=== PATIENT | male | born 1995 | race Caucasian/White ===

== ENCOUNTER 2020-08-16 14:04 | Emergency (ER) | payer OTHER, SELFPAY ==
[2020-08-16 14:09] VITALS: BP 140/85; PULSE 101; RESP 16; TEMP 37.2; O2SAT 100; BMI 17.7
--- NOTE | 2020-08-16 15:17 | ED.DENTAL ---
HPI - Dental/Oral General Chief complaint: Dental/Oral Stated complaint: gums swollen Time Seen by Provider: 08/16/20 15:10 Source: patient Mode of arrival: ambulatory Limitations: no limitations History of Present Illness HPI Narrative: 25 y/o male presenting with reddened gums below his front bottom teeth as well as mild whitish discoloration of gums above left upper incisor. He has no gum or dental pain. No facial pain or swelling. No sensitivity to hot or cold food. Onset (ago): day(s) Duration: constant Severity: mild Associated symptoms: gum swelling Treatment prior to arrival: none Related Data Previous Rx's Medication Instructions Recorded chlorhexidine gluconate [Paroex 15 ml BUCCAL DAILY #118 ml 08/16/20 Oral Rinse] Allergies Allergy/AdvReac Type Severity Reaction Status Date / Time No Known Allergies Allergy Unverified 04/05/20 18:04 [No Known Allergies*] Review of Systems Review of Systems: Constitutional: No Fever, No Chills ENT/Mouth: No sore throat, No Rhinorrhea, No Swallowing Difficulty, No dental pain, +reddened gums Eyes: No Eye Pain, No Swelling, No Redness Cardiovascular: No Chest Pain, No SOB Respiratory: No Cough, No Sputum Gastrointestinal: No Nausea, No Vomiting Neuro: No Headache Heme/Lymph: No Bruising, + Lymphadenopathy PMFSH Past Medical History Attestation statement: The following information was validated with the patient. Medical History Anxiety Herniated disc Social History Social History Advance Directives: No Advance Directives Information Provided: No Physical Exam Vital Signs: Vital Signs: Last Vital Signs Temp 99.0 F 08/16/20 14:09 Pulse 101 H 08/16/20 14:09 Resp 16 08/16/20 14:09 BP 140/85 H 08/16/20 14:09 Pulse Ox 100 08/16/20 14:09 Body Mass Index 17.7 Appearance: Alert. Oriented X3. No acute distress. HEENT: mild gingival erythema and receding of central lower gums and small area of white punctuate discoloration above upper left incisor, non-tender CVS: Normal heart rate and rhythm. Pulses normal. Respiratory: No respiratory distress. Skin: Skin warm and dry. Normal skin color. Normal skin turgor. No rashes. Extremities: atraumatic, no edeam Neuro: Oriented X 3. No motor deficit. No sensory deficit. Course Course Course Narrative: 25 y/o male presenting with painless reddened and whitish patch on his gums. Possible gingivitis. Will treat with peridex oral rinse and have him follow up with his denist. No abscess, candidiasis, ulcerations. Stable for discharge. Discharge Plan Discharge Clinical Impression: Acute gingivitis Patient Disposition: Home, Self-Care Instructions: Gingivitis (ED) Additional Instructions: Follow up with your dentist. Use a soft bristle toothbrush. Use the prescribed oral rinse two times per day. Prescriptions: New chlorhexidine gluconate [Paroex Oral Rinse] 0.12 % mouthwash 15 ml buccal DAILY Qty: 118 RF: 0
== END 2020-08-16 15:36 | disposition home or self-care (01) ==
PROVIDERS: Emergency Provider Emergency Medicine; PCP Internal Medicine
DX: K05.00 Acute gingivitis, plaque induced (principal)
CPT/HCPCS: 99283

== ENCOUNTER 2020-11-09 14:51 | Outpatient (REF) | payer OTHER, SELFPAY | END 2020-11-09 14:52 | disposition home or self-care (01) | LOC: HO.LAB 14:51 | PROVIDERS: Visit Provider Internal Medicine | DX: Z20.822 Contact with and (suspected) exposure to COVID-19 (principal) | CPT/HCPCS: C9803; U0003; U0005 ==

== ENCOUNTER 2021-05-28 12:31 | Outpatient (REF) | payer OTHER, MEDICAID, SELFPAY ==
--- NOTE | ~2021-05-28 | XR_ITS ---
EXAMINATION: XR CHEST CLINICAL INFORMATION: Bronchitis. COMPARISON: Chest done on 06/16/2012. TECHNIQUE: 2 views of the chest were obtained. FINDINGS: No significant abnormality is noted involving the heart, lungs, mediastinum, bony thorax or soft tissues. No significant change. XR/XR chest 2V IMPRESSION: Unremarkable examination.
== END 2021-05-28 12:32 | disposition home or self-care (01) ==
LOC: HO.HMGCX 12:31
PROVIDERS: PCP Internal Medicine; Visit Provider Internal Medicine
DX: J40 Bronchitis, not specified as acute or chronic (principal)
CPT/HCPCS: 71046

== ENCOUNTER 2021-12-07 09:15 | Emergency (ER) | payer OTHER, SELFPAY ==
--- NOTE | ~2021-12-07 | XR_ITS ---
EXAMINATION: XR LUMBOSACRAL SPINE CLINICAL INFORMATION: Low back pain radiating to buttocks. COMPARISON: Lumbosacral spine done on 10/04/2017. TECHNIQUE: Three views of the lumbosacral spine. FINDINGS: The vertebral bodies and posterior elements are normal. The disc spaces are preserved and the vertebral alignment is normal. The paraspinal soft tissues are normal. XR/XR lumbar spine 2-3V IMPRESSION: Unremarkable examination. No significant change since 10/04/2017.
[2021-12-07 09:50] VITALS: BP 146/68; PULSE 102; RESP 18; TEMP 36.9; O2SAT 97; BMI 19.2
--- NOTE | 2021-12-07 09:56 | ED_ITS ---
HPI - General Adult General Chief complaint: General Medical Stated complaint: lower back pain Time Seen by Provider: 12/07/21 09:43 Source: patient Mode of arrival: ambulatory Limitations: no limitations History of Present Illness HPI narrative: 18-year-old male presents to the ER with lower back pain that radiates into both of his legs this started last night. He reports he was unable to sleep last night due to the pain. He reports the pain is in his lower back, his buttocks, and radiates to the upper portion of the back of his legs. It is worse with sitting, his most comfortable position is standing. He has not taken any medications for the pain. He also reports the pain radiates from the buttock area around to the bilateral inguinal area. Worse with movement. No testicular pain or urinary symptoms. No nausea vomiting or diarrhea. No fevers. No history of IVDA. No urinary or bowel incontinence. 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 MD complaint: Low back pain Onset (ago): day(s) (1) Location: back Radiation: extremity Severity: severe Severity scale (1-10): 10 Quality: stabbing and sharp Pain Consistency: constant Relieving factors: other (Standing and walking) Exacerbating factors: movement and other (Laying down) Associated symptoms: denies other symptoms Treatments prior to arrival: none Related Data Previous Rx's Medication Instructions Recorded cyclobenzaprine 10 mg tablet 10 mg PO TID PRN #14 tab 12/07/21 ibuprofen 600 mg tablet 600 mg PO Q8H PRN #14 tab 12/07/21 lidocaine 5 % topical patch 1 patch TOPICAL DAILY #15 ea 12/07/21 oxycodone 5 mg tablet 5 mg PO TID PRN #8 tab 12/07/21 Allergies Allergy/AdvReac Type Severity Reaction Status Date / Time No Known Allergies Allergy Unverified 05/28/21 11:53 [No Known Allergies*] Review of Systems Review of Systems: Constitutional: No Fever, No Chills Cardiovascular: No Chest Pain, No SOB Gastrointestinal: No Nausea, No Vomiting, No abdominal Pain Genitourinary: No Dysuria, No Urinary Frequency, No Hematuria Musculoskeletal: No joint pain, No Myalgias, +Back pain Skin: No Skin Lesions, No rash Neuro: No Weakness, No Numbness, No Dizziness, No Headache Psych: No Anxiety/Panic, No Depression Heme/Lymph: No Bruising, No Lymphadenopathy PMFSH Past Medical History Medical History Anxiety Herniated disc Social History Social History Patient Tobacco Use Status: Never used Tobacco Advance Directives: No Physical Exam ED Vital Signs: Vital Signs - 24 hr 12/07/21 09:50 Temperature 98.4 F Pulse Rate 102 H Respiratory Rate 18 Blood Pressure 146/68 H Pulse Oximetry 97 BMI result Body Mass Index 19.2 Appearance: Alert. Oriented X3. No acute distress. Pacing in the room HEENT: normal inspection CVS: Normal heart rate and rhythm. Pulses normal. Respiratory: No respiratory distress. Skin: Skin warm and dry. Normal skin color. Normal skin turgor. No rashes. Back: soft tissue tenderness of the bilateral lower lumbar area, +SI joint tend erness bilaterally. no midline tenderness. limited flexion of the spine due to pain Extremities: Normal inspection x4 Neuro: Oriented X 3. No motor deficit. No sensory deficit. Normal DTRs Course Course Course Narrative: 18-year-old male presents to the ER with nontraumatic lower back pain that ra diates to his bilateral buttock and lower extremities. Pain with sitting and lying flat. He has pain shooting down the back of both of his legs, consistent with sciatica. He has no red flag symptoms of low back pain. He is not taking any medications for pain as of yet. Will give him a dose of oxycodone, Toradol, Lidoderm patch and reassess. X-ray ordered per request. Reevaluation(s) Reevaluation #1: X-ray is normal. Patient reports his pain is much more tolerable at this time. Will give a short course of oxycodone for pain control, NSAID, Lidoderm. He is stable for discharge home with supportive care and outpatient follow-up. Encourage follow-up with his PCP for ongoing management. Work note provided per request. Discharge Plan Discharge Clinical Impression: Sciatica Patient Disposition: Home, Self-Care Instructions: Sciatica (ED), Lower Back Exercises (ED) Additional Instructions: Your x-ray today was normal. No bending, lifting or twisting. Use ice several times per day for 20 minutes at a time for the next 48 hours and then change to heat. Take medications as prescribed to help with pain and discomfort. Follow up with your Primary Care Doctor this week. If your pain worsens, if you develop new numbness, tingling, weakness, loss of function or incontinence call 911 or come back to the ER right away for evaluation. Prescriptions: New cyclobenzaprine 10 mg tablet 10 mg PO TID PRN (Reason: muscle spasm) Qty: 14 0RF ibuprofen 600 mg tablet 600 mg PO Q8H PRN (Reason: pain) Qty: 14 0RF lidocaine 5 % adhesive patch,medicated 1 patch topical DAILY Qty: 15 0RF Rx Instructions: leave on most painful area for up to 12 hrs oxycodone 5 mg tablet 5 mg PO TID PRN (Reason: severe pain (scale score 7-10)) Qty: 8 0RF Stand Alone Forms: Work/School Release Interventions: ED Discharge Assessment Last Done: 12/07/21 11:40 Discharge Date/Time: 12/07/21 11:41
[2021-12-07] MEDS: oxyCODONE HCl Immed Release 5 MG TABLET PO (10:21)
[2021-12-07] MEDS: Acetaminophen 325 MG TABLET 975 MG PO (10:21)
[2021-12-07] MEDS: Cyclobenzaprine HCl 10 MG TABLET PO (10:21)
[2021-12-07] MEDS: Ketorolac Tromethamine 30 MG/ML VIAL IM (10:21)
== END 2021-12-07 11:41 | disposition home or self-care (01) ==
PROVIDERS: Emergency Provider Emergency Medicine Emergency Medical Services
DX: M54.42 Lumbago with sciatica, left side (principal); M54.41 Lumbago with sciatica, right side; M79.605 Pain in left leg; M79.604 Pain in right leg; Z79.899 Other long term (current) drug therapy
CPT/HCPCS: 72100; 96372; 99283; 99284; J1885

== ENCOUNTER 2021-12-09 13:37 | Emergency (ER) | payer OTHER, SELFPAY ==
[2021-12-09 14:24] VITALS: BP 131/84; PULSE 86; RESP 18; TEMP 36.9; O2SAT 98; BMI 19.2
[2021-12-09 14:36] LABS: MANUAL DIFF FLAG NO
[2021-12-09 14:37] LABS: Basophils Percent Auto 0.3 % (0-2); Eosinophils Percent Auto 0.9 % (0-4); Hematocrit 42.6 % (42.0-52.0); Hemoglobin 14.1 g/dl (14.0-18.0); Lymphocytes Absolute Auto 1.7 X10*3/uL (1.2-4.9); Lymphocytes Percent Auto 51.8 % (20-40); Mean Corpuscular HGB Conc 33.1 g/dl (31.0-36.0); Mean Corpuscular Hemoglobin 30.3 pg (27.0-33.0); Mean Corpuscular Volume 91.6 fL (80.0-98.0); Mean Platelet Volume 9.6 fL (9.4-12.4); Monocytes Absolute Auto 0.5 X10*3/uL (0.1-1.2); Monocytes Percent Auto 14.6 % (2-11); Neutrophils Absolute Auto 1.1 x10*3/uL (2.0-8.3); Neutrophils Percent Auto 32.4 % (45-73); Platelet Count 245 X10*3/uL (160-400); Red Blood Count 4.65 X10*6/uL (4.60-5.80); Red Cell Distribution Width 11.7 % (11.0-16.0); White Blood Count 3.4 X10*3/uL (4.8-10.8)
[2021-12-09 14:54] LABS: Anion Gap 14 (12-20); Blood Urea Nitrogen 6 mg/dL (9-16); Calcium 9.1 mg/dL (8.4-10.2); Carbon Dioxide 26 mmol/L (22-29); Chloride 101 mmol/L (96-108); Creatinine Clr Calc Pharmacy 111.8; Estimated Glomerular Filt Rate > 60; Glucose Random 105 mg/dL (60-115); Potassium 3.7 mmol/L (3.3-5.1); Sodium 137 mmol/L (135-145)
== END 2021-12-09 21:16 | disposition left against medical advice (07) ==
PROVIDERS: Emergency Provider Emergency Medicine
DX: R51.9 Headache, unspecified (principal)
CPT/HCPCS: 36415; 80048; 85025; 99283

== ENCOUNTER 2022-07-05 16:04 | Emergency (ER) | payer OTHER, SELFPAY ==
[2022-07-05 16:10] VITALS: BP 144/99; PULSE 101; RESP 18; TEMP 36.2; O2SAT 97; BMI 20.7
--- NOTE | 2022-07-05 16:14 | ED.MALEGU ---
HPI - Male Genitourinary General Chief complaint: General Medical <MICHAEL Parra - Last Filed: 07/05/22 16:16> Stated complaint: personal <MICHAEL Parra - Last Filed: 07/05/22 16:16> Time Seen by Provider: 07/05/22 16:54 <MICHAEL Parra - Last Filed: 07/05/22 16:16> Source: patient <MICHAEL Ross - Last Filed: 07/05/22 18:17> Mode of arrival: ambulatory <MICHAEL Ross - Last Filed: 07/05/22 18:17> Limitations: no limitations <MICHAEL Ross - Last Filed: 07/05/22 18:17> History of Present Illness HPI Narrative: Patient is a 27 year old assigned male at with no reported medical presenting to the emergency department today with a lesion on his penis. Patient states that 2 days ago he noticed a lesion on his penis and sometimes the head of his penis itches some. Patient states that he did have unprotected sex 2 weeks ago. Patient denies any dizziness, lightheadedness, abdominal pain, nausea, vomiting, fever, chills, blurry vision, double vision, loss of vision, chest pain, difficulty breathing, shortness of breath, back pain, night sweats, pain with urination, increased urinary frequency, increased urinary urgency, blood in his urine or stool, syncope or a near syncopal episode, recent trauma or falls, bowel incontinence, bladder incontinence, bowel retention, bladder retention, or any other complaints at this time. <MICHAEL Ross - Last Filed: 07/05/22 18:17> MD Complaint: possible STD exposure (2 weeks ago was last unprotected sex) <MICHAEL Ross - Last Filed: 07/05/22 18:17> Onset (ago): day(s) (2) <MICHAEL Ross - Last Filed: 07/05/22 18:17> Duration: constant <MICHAEL Ross - Last Filed: 07/05/22 18:17> Location: penis <MICHAEL Ross Last Filed: 07/05/22 18:17> Severity: mild <MICHAEL Ross Last Filed: 07/05/22 18:17> Severity scale (1-10): 1 <MICHAEL Ross - Last Filed: 07/05/22 18:17> Relieving factors: none <MICHAEL Ross - Last Filed: 07/05/22 18:17> Exacerbating factors: none <MICHAEL Ross - Last Filed: 07/05/22 18:17> Associated symptoms: Reports denies other symptoms <MICHAEL Ross - Last Filed: 07/05/22 18:17> Related Data Sexually active: Yes <MICHAEL Ross - Last Filed: 07/05/22 18:17> Home medications: Previous Rx's Medication Instructions Recorded cyclobenzaprine 10 mg tablet 10 mg PO TID PRN muscle spasm #14 12/07/21 tabs ibuprofen 600 mg tablet 600 mg PO Q8H PRN pain #14 tabs 12/07/21 lidocaine 5 % topical patch 1 patch topical DAILY #15 ea 12/07/21 oxycodone 5 mg tablet 5 mg PO TID PRN severe pain (scale 12/07/21 score 7-10) #8 tabs doxycycline hyclate 100 mg tablet 100 mg PO BID 7 days #14 tabs 07/05/22 fluconazole 150 mg tablet 150 mg PO Q3D 2 doses #2 tabs 07/05/22 (Diflucan) valacyclovir 1 gram tablet 1,000 mg PO BID 7 days #14 tabs 07/05/22 valacyclovir 500 mg tablet 500 mg PO BID #30 tabs 07/05/22 <MICHAEL Parra - Last Filed: 07/05/22 16:16> Allergies/Adverse reactions: Allergies Allergy/AdvReac Type Severity Reaction Status Date / Time No Known Allergies Allergy Verified 07/05/22 16:10 [No Known Allergies*] <MICHAEL Parra - Last Filed: 07/05/22 16:16> Review of Systems Constitutional: Constitutional: Reports no additional constitutional complaints, Denies chills, Denies fever(s) and Denies night sweats <MICHAEL Ross - Last Filed: 07/05/22 18:17> Eyes: Eyes: Reports no additional eye complaints, Denies blurry vision, Denies change in vision, Denies diplopia, Denies eye discharge, Denies loss of vision and Denies eye pain <MICHAEL Ross - Last Filed: 07/05/22 18:17> ENT: Denies dizziness <MICHAEL Ross - Last Filed: 07/05/22 18:17> Cardiovascular: Cardiovascular: Reports no additional cardiovascular complaints, Denies chest pain, Denies lightheadedness, Denies Loss of Consciousness and Denies dyspnea <MICHAEL Ross - Last Filed: 07/05/22 18:17> Respiratory: Respiratory: Reports no additional respiratory complaints and Denies dyspnea <MICHAEL Ross - Last Filed: 07/05/22 18:17> Gastrointestinal: Gastrointestinal: Reports no additional gastrointestinal complaints, Denies abdominal pain, Denies melena, Denies hematochezia, Denies change in bowel habits and Denies change in stool character <MICHAEL Ross - Last Filed: 07/05/22 18:17> Genitourinary: Genitourinary: Reports no additional male genitourinary complaints, Denies hematuria, Denies oliguria, Denies difficulty urinating, Reports genital lesions, Denies dysuria, Denies urinary frequency, Denies urinary hesitancy, Denies urinary incontinence and Denies urinary urgency <MICHAEL Ross - Last Filed: 07/05/22 18:17> Musculoskeletal: Musculoskeletal: Reports no additional musculoskeletal complaints, Denies numbness and Denies tingling <MICHAEL Ross - Last Filed: 07/05/22 18:17> Neurologic: Denies dizziness, Denies loss of vision, Denies numbness and Denies tingling <MICHAEL Ross - Last Filed: 07/05/22 18:17> Psychiatric: Psychiatric: Reports no additional psychiatric complaints <MICHAEL Ross - Last Filed: 07/05/22 18:17> Endocrine: Endocrine: Reports no additional endocrine complaints <MICHAEL Ross - Last Filed: 07/05/22 18:17> Hematologic/Lymphatic: Hematologic/Lymphatic: Reports no additional hematologic/lymphatic complaints <MICHAEL Ross - Last Filed: 07/05/22 18:17> Allergic/Immunologic: Allergic/Immunologic: Reports no additional allergic/immunologic complaints <MICHAEL Ross - Last Filed: 07/05/22 18:17> PMFSH Past Medical History Attestation statement: The following information was validated with the patient. <MICHAEL Ross - Last Filed: 07/05/22 18:17> Source: old records reviewed and nursing notes reviewed <MICHAEL Ross - Last Filed: 07/05/22 18:17> Medical History: Medical History Anxiety Herniated disc <MICHAEL Parra - Last Filed: 07/05/22 16:16> Social History Social History: Social History Patient Tobacco Use Status: Never used Tobacco Advance Directives: No Advance Directives Information Provided: Yes <MICHAEL Parra - Last Filed: 07/05/22 16:16> Physical Exam Vital Signs: Vital Signs: Last Vital Signs Temp 97.1 F 07/05/22 16:10 Pulse 101 H 07/05/22 16:10 Resp 18 07/05/22 16:10 BP 144/99 H 07/05/22 16:10 Pulse Ox 97 07/05/22 16:10 O2 Del Method 07/05/22 16:10 BMI result Body Mass Index 20.7 <MICHAEL Parra - Last Filed: 07/05/22 16:16> Vital Signs: Last Vital Signs Temp 97.1 F 07/05/22 16:10 Pulse 101 H 07/05/22 16:10 Resp 18 07/05/22 16:10 BP 144/99 H 07/05/22 16:10 Pulse Ox 97 07/05/22 16:10 O2 Del Method 07/05/22 16:10 BMI result Body Mass Index 20.7 <MICHAEL Ross - Last Filed: 07/05/22 18:17> Const: General: cooperative, no acute distress, alert and awake <MICHAEL Ross - Last Filed: 07/05/22 18:17> Nutritional Appearance: well nourished <MICHAEL Ross - Last Filed: 07/05/22 18:17> Orientation/consciousness: patient oriented x3 <MICHAEL Ross - Last Filed: 07/05/22 18:17> Limitations: no limitations <Theresa Moris PA - Last Filed: 07/05/22 18:17> HEENT: Head: Yes normal to inspection and Yes atraumatic <Theresa Moris PA - Last Filed: 07/05/22 18:17> Ears: hearing grossly normal bilaterally and external ears normal <Theresa Moris PA - Last Filed: 07/05/22 18:17> General nose exam: Normal external nose present, no nasal discharge noted and no epistaxis <Theresa Subramanian PA - Last Filed: 07/05/22 18:17> Face and sinus: Yes normal facial exam, No abrasion and No laceration <Theresa Subramanian PA - Last Filed: 07/05/22 18:17> Mouth: Normal oral and palatal mucosa present, no drooling and no muffled voice <Theresa Subramanian PA - Last Filed: 07/05/22 18:17> Eyes: General: appearance normal, both eyes and all related structures <Theresa Subramanian PA - Last Filed: 07/05/22 18:17> Periorbital: periorbital findings normal <Theresa Morsi PA - Last Filed: 07/05/22 18:17> Eyelids: Yes eyelids normal <Theresa Subramanian PA - Last Filed: 07/05/22 18:17> Conjunctivae: conjunctivae normal <Theresa Moris PA - Last Filed: 07/05/22 18:17> Pupils: Equal, round and reactive pupils present <Theresa Subramanian PA - Last Filed: 07/05/22 18:17> EOM: EOMs intact bilaterally <Theresa Subramanian PA - Last Filed: 07/05/22 18:17> Neck: Neck: Yes normal visual inspection, Yes full ROM and Yes no lymphadenopathy <Theresa Subramanian PA - Last Filed: 07/05/22 18:17> Chest: Chest palpation & inspection: normal inspection of the chest <Theresa Subramanian PA - Last Filed: 07/05/22 18:17> Resp: Effort & Inspection: normal respiratory effort and able to speak in complete sentences <Theresa Subramanian PA - Last Filed: 07/05/22 18:17> Auscultation: clear to auscultation bilaterally <Theresa Subramanian PA - Last Filed: 07/05/22 18:17> Cardio: Rate: regular rate <Theresa Subramanian PA - Last Filed: 07/05/22 18:17> Rhythm: regular rhythm <Theresa Subramanian PA - Last Filed: 07/05/22 18:17> GI: Inspection: Yes normal to inspection <Theresa Subramanian PA - Last Filed: 07/05/22 18:17> : Penis: uncircumcised, erythematous (tip) and vesicles (consistent with HSV) <Theresa Subramanian, PA - Last Filed: 07/05/22 18:17> Neuro: General: patient oriented x3 and moves all extremities <Theresa Subramanian PA - Last Filed: 07/05/22 18:17> Cranial nerves: Yes Equal, round and reactive pupils present <Theresa Subramanian PA - Last Filed: 07/05/22 18:17> Cognition (Neuro): normal cognition <Theresa Subramanian PA - Last Filed: 07/05/22 18:17> Motor exam (neuro): 5/5 motor strength present throughout <Theresa Subramanian PA - Last Filed: 07/05/22 18:17> Sensory Exam: Normal double simultaneous stimulation for sensation <Theresa Subramanian PA - Last Filed: 07/05/22 18:17> Coordination: [id number] test normal <Theresa Subramanian PA - Last Filed: 07/05/22 18:17> Extrem: General: Yes normal to inspection, Yes full ROM and Yes capillary refill normal <Theresa Subramanian PA - Last Filed: 07/05/22 18:17> Psych: Appearance: grossly normal <Theresa Subramanian PA - Last Filed: 07/05/22 18:17> Mental Status: mental status grossly normal <Theresa Subramanian PA - Last Filed: 07/05/22 18:17> Affect: normal affect <Theresa Subramanian PA - Last Filed: 07/05/22 18:17> Attitude: cooperative <Theresa Subramanian PA - Last Filed: 07/05/22 18:17> Thought process: Normal thought process present <Theresa Subramanian PA - Last Filed: 07/05/22 18:17> Thought content: Normal thought content present <MICHAEL Ross - Last Filed: 07/05/22 18:17> Insight: Good insight present (Psych) <MICHAEL Ross - Last Filed: 07/05/22 18:17> Course Course Course Narrative: [id number] 27yoM presenting to the ED c c/o redness and bumps to the tip of the penis that started a few days ago. Reports sexual intercourse approximately 1-2 weeks ago that was protected. Denies any oral intercourse from the female. Denies any fevers, abdominal pain, back pain, dysuria, hematuria, abnormal penile discharge, testicular pain or any other symptoms complaints or concerns at this time. Plan: Will obtain labs which include syphilis, UA, gonorrhea chlamydia, herpes swab. Patient is stable the rest of the exam a be deferred to [facility] provider. <MICHAEL Parra - Last Filed: 07/05/22 16:16> Medications Administered Discontinued Medications Generic Name Dose Route Start Last Admin Trade Name Freq PRN Reason Stop Dose Admin Ceftriaxone Sodium 500 mg/ 0 mg 07/05/22 17:11 07/05/22 17:29 Lidocaine HCl 1 ml IM 07/05/22 17:12 1 kit ONCE ONE Administration <MICHAEL Parra - Last Filed: 07/05/22 16:16> Medications Administered Discontinued Medications Generic Name Dose Route Start Last Admin Trade Name Freq PRN Reason Stop Dose Admin Ceftriaxone Sodium 500 mg/ 0 mg 07/05/22 17:11 07/05/22 17:29 Lidocaine HCl 1 ml IM 07/05/22 17:12 1 kit ONCE ONE Administration <MICHAEL Ross - Last Filed: 07/05/22 18:17> Medical Decision Making Medical Decision Making MDM Narrative: Patient is a 27 year old assigned male at with no reported medical history presenting to the emergency department today with penile lesions. Patient's physical exam showed a vesicle on the right side of the penis consistent with an HSV lesion as well as an additional cluster of smaller vesicles on the left side of the penile head. Patient's penile head was also erythematous. Patient's blood work was unremarkable. Patient's urine showed no acute process. Patient's HSV and CT/NG tests are all pending. I explained my physical exam findings as well as all test results to the patient. I answered all questions asked by the patient. Patient was given IM Rocephin while in the department. I stressed the importance of the patient taking his medication as prescribed. I stressed the importance of the patient following up with his primary care provider. Patient stated that he had some questions about the anatomy of his penis and how it has always been . I advised him that aside from the lesions, everything looks normal however, he should discuss these questions with a Urologist. I stressed the importance of the patient returning to the emergency department immediately if his symptoms were to worsen or if he were to develop any dizziness, shortness of breath, difficulty breathing, chest pain, blurry vision, loss of vision, nausea, vomiting, abdominal pain, fever, chills, back pain, or any other complaints. Patient verbalized agreement and understanding with this treatment plan and discharge. <MICHAEL Ross - Last Filed: 07/05/22 18:17> Differential Diagnosis Differential Diagnoses: The differential diagnosis associated with the presentation includes <MICHAEL Ross - Last Filed: 07/05/22 18:17> HSV <MICHAEL Ross - Last Filed: 07/05/22 18:17> Lab Data MDM Lab Attestation statement: I reviewed the patient's lab results. <MICHAEL Ross - Last Filed: 07/05/22 18:17> Result Diagrams: : 07/05/22 17:01 07/05/22 17:01 <MICHAEL Parra - Last Filed: 07/05/22 16:16> Labs: Lab Results 07/05/22 07/05/22 07/05/22 Range/Units 17:01 17:01 17:32 WBC 7.7 (4.8-10.8) X10*3/uL RBC 4.81 (4.60-5.80) X10*6/uL Hgb 14.5 (14.0-18.0) g/dl Hct 43.4 (42.0-52.0) % MCV 90.2 (80.0-98.0) fL MCH 30.1 (27.0-33.0) pg MCHC 33.4 (31.0-36.0) g/dl RDW 11.6 (11.0-16.0) % Plt Count 335 D (160-400) X10*3/uL MPV 9.3 L (9.4-12.4) fL Immature Gran % (Auto) 0.1 (0.0-0.4) % Neut % (Auto) 66.2 (45-73) % Lymph % (Auto) 25.7 (20-40) % Bladen % (Auto) 6.4 (2-11) % Eos % (Auto) 1.3 (0-4) % Baso % (Auto) 0.3 (0-2) % Lymph # (Auto) 2.0 (1.2-4.9) X10*3/uL Bladen # (Auto) 0.5 (0.1-1.2) X10*3/uL Eos # (Auto) 0.1 (0.0-0.4) X10*3/uL Baso # (Auto) 0.0 (0.0-0.2) X10*3/uL Abs Immat Gran (auto) 0.01 (0.00-0.03) X10*3/uL Absolute Neuts (auto) 5.1 (2.0-8.3) x10*3/uL Absolute Nucleated RBC 0.000 (0.0-0.012) X10*3/uL Nucleated RBC % (auto) 0.0 (0.0-0.2) /100WBC Sodium 139 (135-145) mmol/L Potassium 4.0 (3.3-5.1) mmol/L Chloride 101 (96-108) mmol/L Carbon Dioxide 28 (22-29) mmol/L Anion Gap 14 (12-20) BUN 12 D (9-16) mg/dL Creatinine 0.80 (0.5-1.4) mg/dL Estim Creat Clear Calc 122.3 Estimated GFR > 60 Random Glucose 91 (60-115) mg/dL Calcium 9.7 D (8.4-10.2) mg/dL Magnesium 1.8 (1.6-2.6) mg/dL Total Bilirubin 0.9 (0.0-1.0) mg/dL AST 22 (5-37) U/L ALT 44 H (0-40) U/L Alkaline Phosphatase 74 (39-117) U/L Total Protein 8.1 H (6.5-8.0) g/dL Albumin 4.8 (3.5-5.0) g/dL Urine Color Yellow Urine Appearance Clear Urine pH 7.0 (5.0-9.0) Ur Specific [place] 1.010 (1.005-1.025) Urine Protein Negative (Neg-Trace) mg/dL Urine Glucose (UA) Negative (Negative) mg/dL Urine Ketones Negative (Negative) mg/dL Urine Blood Negative (Negative) Urine Nitrite Negative (Negative) Ur Leukocyte Esterase Negative (Negative) <MICHAEL Parra - Last Filed: 07/05/22 16:16> Lab Results 07/05/22 07/05/22 07/05/22 Range/Units 17:01 17:01 17:32 WBC 7.7 (4.8-10.8) X10*3/uL RBC 4.81 (4.60-5.80) X10*6/uL Hgb 14.5 (14.0-18.0) g/dl Hct 43.4 (42.0-52.0) % MCV 90.2 (80.0-98.0) fL MCH 30.1 (27.0-33.0) pg MCHC 33.4 (31.0-36.0) g/dl RDW 11.6 (11.0-16.0) % Plt Count 335 D (160-400) X10*3/uL MPV 9.3 L (9.4-12.4) fL Immature Gran % (Auto) 0.1 (0.0-0.4) % Neut % (Auto) 66.2 (45-73) % Lymph % (Auto) 25.7 (20-40) % Bladen % (Auto) 6.4 (2-11) % Eos % (Auto) 1.3 (0-4) % Baso % (Auto) 0.3 (0-2) % Lymph # (Auto) 2.0 (1.2-4.9) X10*3/uL [place] # (Auto) 0.5 (0.1-1.2) X10*3/uL Eos # (Auto) 0.1 (0.0-0.4) X10*3/uL Baso # (Auto) 0.0 (0.0-0.2) X10*3/uL Abs Immat Gran (auto) 0.01 (0.00-0.03) X10*3/uL Absolute Neuts (auto) 5.1 (2.0-8.3) x10*3/uL Absolute Nucleated RBC 0.000 (0.0-0.012) X10*3/uL Nucleated RBC % (auto) 0.0 (0.0-0.2) /100WBC Sodium 139 (135-145) mmol/L Potassium 4.0 (3.3-5.1) mmol/L Chloride 101 (96-108) mmol/L Carbon Dioxide 28 (22-29) mmol/L Anion Gap 14 (12-20) BUN 12 D (9-16) mg/dL Creatinine 0.80 (0.5-1.4) mg/dL Estim Creat Clear Calc 122.3 Estimated GFR > 60 Random Glucose 91 (60-115) mg/dL Calcium 9.7 D (8.4-10.2) mg/dL Magnesium 1.8 (1.6-2.6) mg/dL Total Bilirubin 0.9 (0.0-1.0) mg/dL AST 22 (5-37) U/L ALT 44 H (0-40) U/L Alkaline Phosphatase 74 (39-117) U/L Total Protein 8.1 H (6.5-8.0) g/dL Albumin 4.8 (3.5-5.0) g/dL Urine Color Yellow Urine Appearance Clear Urine pH 7.0 (5.0-9.0) Ur Specific [place] 1.010 (1.005-1.025) Urine Protein Negative (Neg-Trace) mg/dL Urine Glucose (UA) Negative (Negative) mg/dL Urine Ketones Negative (Negative) mg/dL Urine Blood Negative (Negative) Urine Nitrite Negative (Negative) Ur Leukocyte Esterase Negative (Negative) <MICHAEL Ross - Last Filed: 07/05/22 18:17> Discharge Plan Discharge Clinical Impression: Penile lesion <MICHAEL Parra - Last Filed: 07/05/22 16:16> Patient Disposition: Home, Self-Care <MICHAEL Parra - Last Filed: 07/05/22 16:16> Additional Instructions: We will call you with any positive results within the next 3-5 business days. Take 1gram of Valacyclovir twice a day for 7 days. IF you have a recurrent outbreak, take 1 500mg tablet of Valacyclovir twice a day for 3 days. Follow up with your primary care provider and a urologist. Return to the emergency department immediately if your symptoms worsen or if you develop any dizziness, shortness of breath, difficulty breathing, chest pain, blurry vision, loss of vision, nausea, vomiting, abdominal pain, fever, chills, back pain, or any other complaints. <MICHAEL Parra - Last Filed: 07/05/22 16:16> Prescriptions: New doxycycline hyclate 100 mg tablet 100 mg PO BID 7 Days Qty: 14 0RF valacyclovir 1 gram tablet 1,000 mg PO BID 7 Days Qty: 14 0RF valacyclovir 500 mg tablet 500 mg PO BID Qty: 30 0RF Rx Instructions: Take 1 tab twice a day for 3 days at the start of an outbreak fluconazole [Diflucan] 150 mg tablet 150 mg PO Q3D 0 Days Qty: 2 0RF No Action cyclobenzaprine 10 mg tablet 10 mg PO TID PRN (Reason: muscle spasm) Qty: 14 0RF ibuprofen 600 mg tablet 600 mg PO Q8H PRN (Reason: pain) Qty: 14 0RF lidocaine 5 % adhesive patch,medicated 1 patch topical DAILY Qty: 15 0RF Rx Instructions: leave on most painful area for up to 12 hrs oxycodone 5 mg tablet 5 mg PO TID PRN (Reason: severe pain (scale score 7-10)) Qty: 8 0RF <MICHAEL Parra - Last Filed: 07/05/22 16:16> Referrals: [facility] [place] [facility] [Provider Group] (Call to establish and follow up with a urologist to discuss your penile anatomy concerns. ) Vidal Sands III, MD [Primary Care Provider] - <MICHAEL Parra - Last Filed: 07/05/22 16:16> Stand Alone Forms: Work/School Release <MICHAEL Parra - Last Filed: 07/05/22 16:16> Interventions: ED Discharge Assessment Last Done: 07/05/22 18:39 <MICHAEL Parra - Last Filed: 07/05/22 16:16> Discharge Date/Time: 07/05/22 18:40 <MICHAEL Parra - Last Filed: 07/05/22 16:16> Print Language: Luxembourgish <MICHAEL Parra - Last Filed: 07/05/22 16:16>
[2022-07-05 17:05] LABS: MANUAL DIFF FLAG NO
[2022-07-05 17:06] LABS: Basophils Percent Auto 0.3 % (0-2); Eosinophils Absolute Auto 0.1 X10*3/uL (0.0-0.4); Eosinophils Percent Auto 1.3 % (0-4); Hematocrit 43.4 % (42.0-52.0); Hemoglobin 14.5 g/dl (14.0-18.0); Imm Gran Abs Auto 0.01 X10*3/uL (0.00-0.03); Imm Gran Pct Auto 0.1 % (0.0-0.4); Lymphocytes Percent Auto 25.7 % (20-40); Mean Corpuscular HGB Conc 33.4 g/dl (31.0-36.0); Mean Corpuscular Hemoglobin 30.1 pg (27.0-33.0); Mean Corpuscular Volume 90.2 fL (80.0-98.0); Mean Platelet Volume 9.3 fL (9.4-12.4); Monocytes Absolute Auto 0.5 X10*3/uL (0.1-1.2); Monocytes Percent Auto 6.4 % (2-11); Neutrophils Absolute Auto 5.1 x10*3/uL (2.0-8.3); Neutrophils Percent Auto 66.2 % (45-73); Platelet Count 335 X10*3/uL (160-400); Red Blood Count 4.81 X10*6/uL (4.60-5.80); Red Cell Distribution Width 11.6 % (11.0-16.0); White Blood Count 7.7 X10*3/uL (4.8-10.8)
[2022-07-05 17:27] LABS: Alanine Aminotransferase 44 U/L (0-40); Albumin Level 4.8 g/dL (3.5-5.0); Alkaline Phosphatase 74 U/L (39-117); Anion Gap 14 (12-20); Aspartate Amino Transferase 22 U/L (5-37); Blood Urea Nitrogen 12 mg/dL (9-16); Calcium 9.7 mg/dL (8.4-10.2); Carbon Dioxide 28 mmol/L (22-29); Chloride 101 mmol/L (96-108); Creatinine Clr Calc Pharmacy 122.3; Estimated Glomerular Filt Rate > 60; Glucose Random 91 mg/dL (60-115); Magnesium 1.8 mg/dL (1.6-2.6); Sodium 139 mmol/L (135-145); Total Protein 8.1 g/dL (6.5-8.0)
[2022-07-05] MEDS: cefTRIAXone sodium 500 MG, Lidocaine HCl 1 % MPF 1 ML IM (17:29)
[2022-07-05 17:46] LABS: Appearance Urine Clear; Color Urine Yellow; Glucose Urine UA Negative (Negative); Leukocyte Esterase Urine Negative (Negative); Nitrite Urine Negative (Negative); Urine Blood Negative (Negative); Urine Ketones Negative (Negative); Urine Protein Negative (Neg-Trace)
[2022-07-05 17:54] LABS: Bilirubin Total 0.9 mg/dL (0.0-1.0)
[2022-07-06 13:05] LABS: CT PCR NOT DETECTED (Not Detect.); NG PCR NOT DETECTED (Not Detect.)
[2022-07-09 04:44] LABS: Syphilis Screen Nonreactive (Nonreactive)
== END 2022-07-05 18:40 | disposition home or self-care (01) ==
PROVIDERS: Physician Assistant Medical; Emergency Provider Emergency Medicine; PCP Internal Medicine
DX: N48.89 Other specified disorders of penis (principal)
CPT/HCPCS: 36415; 80053; 81003; 83735; 85025; 86780; 87255; 87491; 87591; 96372; 99282; 99284; J0696